=== PATIENT | female | born 1960 | race Caucasian/White ===

== ENCOUNTER → 2018-04-11 | Outpatient (CLI) | payer OTHER ==
[~2018-04-11] MED LIST: ALBU90OI INH; ALBUTEROL MDI; ASPI81EC PO; AZIT500 PO; Albuterol Sulf8.5 GM; CARV3.125 PO; CEFD300 PO; CEFU500 PO; CLOP75 PO; Coumadin5 MG PO; DOCU100 PO; EZET10 PO; FLUT110OIA; Flovent 110 MCG12 GM; Gas Relief 8080 MG PO; HYDACE5 PO; HYDCHL25 PO; LEVSOD25 PO; LISI20 PO; LOSA50 PO; METF500 PO; MULVITMIND PO; Metformin HCl850 MG PO; NIAC500ER PO; Norco 5-325 Ta1 EACH PO; ST. JOSEPH ASPI81 MG PO; WARF10 PO; XARELTO20 MG PO; albuterol sulfate HF
[2018-04-15 15:08] LABS: HPV 16 Negative (Negative); HPV 18 Negative (Negative); HPV OTHER HR TYPES Negative (Negative)
== END ==
LOC: LAB SHORT 11:31 → LAB 11:31
PROVIDERS: Family Medicine
DX: Z01.419 Encounter for gynecological examination (general) (routine) without abnormal findings (principal)
CPT/HCPCS: 87624; G0145

== ENCOUNTER → 2020-11-29 | Outpatient (CLI) | payer OTHER ==
[2020-11-30 20:13] LABS: CORONAVIRUS (COVID19) CSH-NRL Negative (Negative)
== END | disposition home or self-care (01) ==
LOC: LAB SHORT 10:05
PROVIDERS: Family Medicine
DX: Z20.822 Contact with and (suspected) exposure to COVID-19 (principal)
CPT/HCPCS: U0003

== ENCOUNTER → 2021-01-14 | Outpatient (CLI) | payer OTHER ==
[2021-01-18 09:55] LABS: Stool Occult Bld Immuno 1 Negative (NEGATIVE)
== END | disposition home or self-care (01) ==
LOC: LAB SHORT 12:59
PROVIDERS: Family Medicine
DX: Z12.11 Encounter for screening for malignant neoplasm of colon (principal)
CPT/HCPCS: 82274

== ENCOUNTER 2022-06-13 17:45 | Emergency (ER) | payer OTHER ==
[~2022-06-13] VITALS: Ht 180.3 cm; Wt 136.1 kg
== END 2022-06-13 18:33 | disposition home or self-care (01) ==
LOC: ER 17:45
DX: R04.0 Epistaxis (principal); I10 Essential (primary) hypertension; E11.9 Type 2 diabetes mellitus without complications; Z88.0 Allergy status to penicillin; Z88.8 Allergy status to other drugs, medicaments and biological substances; Z79.82 Long term (current) use of aspirin; Z79.02 Long term (current) use of antithrombotics/antiplatelets; Z79.899 Other long term (current) drug therapy; Z87.891 Personal history of nicotine dependence
CPT/HCPCS: 30903; 99283-25

== ENCOUNTER 2023-01-26 09:54 | Emergency (ER) | payer OTHER ==
[~2023-01-26] VITALS: Ht 182.9 cm; Wt 143.3 kg
[2023-01-26 09:57] VITALS: BP 185/93
[2023-01-26] MEDS ORDERED: METO25ER PO (10:01)
[2023-01-26] MEDS ORDERED: FAMO40 (10:01)
[2023-01-26] MEDS ORDERED: POTA10T PO (10:01)
== END 2023-01-26 11:00 | disposition home or self-care (01) ==
LOC: ER 09:54
DX: R04.0 Epistaxis (principal); I10 Essential (primary) hypertension; E11.9 Type 2 diabetes mellitus without complications; Z79.01 Long term (current) use of anticoagulants; Z79.82 Long term (current) use of aspirin; Z79.84 Long term (current) use of oral hypoglycemic drugs; Z79.899 Other long term (current) drug therapy; Z88.0 Allergy status to penicillin; Z88.8 Allergy status to other drugs, medicaments and biological substances; Z87.891 Personal history of nicotine dependence
CPT/HCPCS: 99283